=== PATIENT | male | born 1945 | race Caucasian/White ===

== ENCOUNTER 2017-10-11 10:38 | Emergency (ER) | payer MEDICARE ==
[2017-10-11] MEDS ORDERED: ISOVUE-370 76%-LOCM 1 ML ONE (10:47)
[2017-10-11 11:02] LABS: #Basophils 0.1 thou/uL (0.0-0.2); #Eosinphils 0.1 thou/uL (0.0-0.7); #Lymphocytes 1.7 thou/uL (1.20-3.40); #Monocytes 0.6 thou/uL (0.11-0.59); #Neutrophils 4.8 thou/uL (1.40-6.50); %Basophils 1.1 % (0.0-1.0); %Eosinophils 1.9 % (0.0-10.0); %Lymphocytes 23.2 % (21.0-51.0); %Monocytes 8.6 % (0.0-10.0); %Neutrophils 65.2 % (42.0-75.0); Hemoglobin 17.1 g/dL (14.0-18.0); Mean Corpuscular HGB CONC 33.6 g/dL (32.0-36.0); Mean Corpuscular Hemoglobin 31.6 pg (27.0-31.0); Mean Platelet Volume 8.9 fL (7.4-10.4); Platelet Count 128 thou/uL (130-400); RBC Distribution Width 12.1 % (11.5-14.5); Red Blood Cell (RBC) Count 5.41 mill/uL (4.70-6.10); White Blood Cell (WBC) Count 7.3 thou/uL (4.8-10.8)
--- NOTE | 2017-10-11 11:05 | CT ---
CT BRAIN WITHOUT CONTRAST: Date: 10/11/17 HISTORY: Loss of vision in the right eye, headache. FINDINGS: No evidence of acute infarct, hemorrhage, midline shift, or abnormal extra-axial fluid collections ar e seen. The ventricular size is appropriate and the basilar cisterns are patent. The bony calvarium i s intact. The visualized paranasal sinuses and mastoid air cells are well aerated. IMPRESSION: No CT evidence of acute intracranial process. Discussed over the telephone with ER physician, Dr. Castillo, at 1055 hours. CODE CR. POS: [facility]
[2017-10-11 11:06] LABS: PTT 26.7 SEC (22.9-36.1); Prothrombin Time 13.3 SEC (12.0-14.7)
[2017-10-11 11:24] LABS: CKMB 1.2 ng/mL (0-6.6); Troponin I Less than 0.010 ng/mL (< 0.028)
[2017-10-11] MEDS ORDERED: Proparacaine 0.5% Opth 15 ML BOT ONE (11:24)
--- NOTE | 2017-10-11 11:32 | CT ---
CTA HEAD WITH IV CONTRAST AND 3D POSTPROCESSING CTA NECK WITH IV CONTRAST AND 3D POSTPROCESSING: Date: 10/11/17 HISTORY: Stroke alert, loss of vision in right eye, headache, loss of visual field in both eyes. FINDINGS: Atherosclerotic vascular calcifications are present. The intra and extracranial carotid artery and ve rtebrobasilar systems demonstrate good flow without evidence of significant stenosis, major branch oc clusion, or aneurysm formation. Incidental note is made of a 1.1 cm enhancing nodule posterior to the inferior pole of the left lobe of the thyroid gland. There are degenerative changes in the spine. IMPRESSION: 1. No evidence of significant abnormality in the carotid or vertebrobasilar systems. 2. Probable left parathyroid adenoma. Correlation with serum PTH level and radionuclide parathyroid scan recommended. Discussed over the phone with ER physician, Dr. Castillo, at 1118 hours. CODE CR. POS: [facility]
[2017-10-11 11:33] LABS: Bilirubin Negative (Negative); Blood, Urine Negative (Negative); Clarity CLEAR (Clear); Glucose, Urine (Dipstick) Negative (Negative); Leukocyte Negative (Negative); Nitrite Negative (Negative); Protein, Urine (Dipstick) Negative (Neg-Trace); Specific Gravity, Urine 1.018 (1.002-1.036)
[2017-10-11 11:42] LABS: ALT (SGPT) 20 U/L (8-55); AST (SGOT) 19 U/L (5-34); Albumin 4.5 g/dL (3.4-4.8); Alkaline Phosphatase 69 U/L (40-150); Anion Gap 14 mmol/L (10-20); BUN (Urea Nitrogen) 24 mg/dL (8.4-25.7); Bilirubin, Total 0.7 mg/dL (0.2-1.2); CK (CPK) 58 U/L (30-200); Calc. Creatinine Clearance 0 mL/min (70-130); Calcium 8.9 mg/dL (7.8-10.44); Carbon Dioxide 19 mmol/L (23-31); Chloride 107 mmol/L (98-107); Estimated GFR-MDRD 53; Globulin 2.9 g/dL (2.4-3.5); Glucose 127 mg/dL (80-115); Protein, Total 7.4 g/dL (5.8-8.1); Sodium 136 mmol/L (136-145)
[2017-10-11 11:52] LABS: Bacteria/HPF None Seen HPF (None Seen); Hyaline Casts/LPF NONE SEEN LPF (0-3 Hyaline); RBC/HPF None Seen HPF (0-3); Squamous Epithelial 0-3 HPF (0-3); WBC/HPF None Seen HPF (0-3)
== END 2017-10-11 16:18 | disposition short-term general hospital (02) ==
LOC: ERS 10:38
DX: H53.131 Sudden visual loss, right eye (principal); E78.5 Hyperlipidemia, unspecified; I10 Essential (primary) hypertension; M10.9 Gout, unspecified; E11.9 Type 2 diabetes mellitus without complications; Z87.891 Personal history of nicotine dependence; Z79.899 Other long term (current) drug therapy; Z79.82 Long term (current) use of aspirin
CPT/HCPCS: 36416; 70450; 70496; 70498; 80053; 81001; 82553; 84484; 85025; 85610; 85730; 93005

== ENCOUNTER → 2018-01-22 | Day surgery (SDC) | payer MEDICARE ==
[~2018-01-22] MED LIST: Diazepam 5 MG TAB ONE; Fentanyl 100 MCG/2 ML VIAL ONE; Heparin 0 ML ONE; Lidocaine 1% (PF) 30 ML VIAL ONE; Midazolam HCl 2 mg/2 ml Vial ONE
[2018-01-22 07:58] LABS: #Eosinphils 0.3 thou/uL (0.0-0.7); #Lymphocytes 1.6 thou/uL (1.20-3.40); #Monocytes 0.6 thou/uL (0.11-0.59); #Neutrophils 4.4 thou/uL (1.40-6.50); %Basophils 0.4 % (0.0-1.0); %Eosinophils 4.3 % (0.0-10.0); %Lymphocytes 23.1 % (21.0-51.0); %Monocytes 8.5 % (0.0-10.0); %Neutrophils 63.8 % (42.0-75.0); Hemoglobin 16.2 g/dL (14.0-18.0); Mean Corpuscular HGB CONC 32.6 g/dL (32.0-36.0); Mean Corpuscular Hemoglobin 30.6 pg (27.0-31.0); Mean Corpuscular Volume 93.8 fL (78.0-98.0); Mean Platelet Volume 8.7 fL (7.4-10.4); Platelet Count 132 thou/uL (130-400); RBC Distribution Width 12.6 % (11.5-14.5); Red Blood Cell (RBC) Count 5.31 mill/uL (4.70-6.10); White Blood Cell (WBC) Count 6.9 thou/uL (4.8-10.8)
[2018-01-22 08:14] LABS: ALT (SGPT) 25 U/L (8-55); AST (SGOT) 18 U/L (5-34); Albumin 4.5 g/dL (3.4-4.8); Alkaline Phosphatase 51 U/L (40-150); Anion Gap 11 mmol/L (10-20); BUN (Urea Nitrogen) 36 mg/dL (8.4-25.7); Bilirubin, Total 1.1 mg/dL (0.2-1.2); Calc. Creatinine Clearance 0 mL/min (70-130); Calcium 9.3 mg/dL (7.8-10.44); Carbon Dioxide 24 mmol/L (23-31); Chloride 109 mmol/L (98-107); Cholesterol 106 mg/dl (< 200 Desired); Estimated GFR-MDRD 31; Globulin 3.1 g/dL (2.4-3.5); Glucose 125 mg/dL (80-115); HDL Cholesterol 35 mg/dL (>60 Neg Risk); LDL Cholesterol, Calculated 44 mg/dL; Potassium 4.2 mmol/L (3.5-5.1); Protein, Total 7.6 g/dL (5.8-8.1); Sodium 140 mmol/L (136-145); Triglycerides 135 mg/dL (Less than 150)
[2018-01-22 08:28] LABS: INR-International Normal Ratio 1.3; PTT 30.1 SEC (22.9-36.1); Prothrombin Time 15.8 SEC (12.0-14.7)
--- NOTE | 2018-01-23 09:36 | EKG ---
Test Reason : PREOP Blood Pressure : / mmHG Vent. Rate : 057 BPM Atrial Rate : 098 BPM P-R Int : 000 ms QRS Dur : 166 ms QT Int : 464 ms P-R-T Axes : 000 -35 141 degrees QTc Int : 451 ms Atrial fibrillation with slow ventricular response Left axis deviation Left bundle branch block Abnormal ECG When compared with ECG of 11-OCT-2017 11:11, Atrial fibrillation has replaced Sinus rhythm T wave inversion less evident in Lateral leads Confirmed by MARIKA CHIN ([id number]) on 01/23/2018 9:35:43 AM Referred By: AMARI Confirmed By:MARIKA CHIN
== END ==
LOC: CCL 07:06
PROVIDERS: ATTEND Internal Medicine Cardiovascular Disease
DX: I42.8 Other cardiomyopathies (principal); I48.1 Persistent atrial fibrillation; I48.2 Chronic atrial fibrillation; I11.0 Hypertensive heart disease with heart failure; I50.22 Chronic systolic (congestive) heart failure; E78.5 Hyperlipidemia, unspecified; E78.00 Pure hypercholesterolemia, unspecified; Z87.891 Personal history of nicotine dependence; Z79.01 Long term (current) use of anticoagulants; Z79.899 Other long term (current) drug therapy; Z53.8 Procedure and treatment not carried out for other reasons
CPT/HCPCS: 36415; 80053; 80061; 85025; 85610; 85730; 93005; 93010; J1644; J2001; J2250; J3010

== ENCOUNTER 2018-03-26 16:25 | Observation (INO) | payer MEDICARE ==
[2018-03-26 17:12] VITALS: BMI 27.1
[2018-03-26] MEDS ORDERED: Acetaminophen 500 MG TAB PO PRN (17:53)
[2018-03-26] MEDS ORDERED: Ibuprofen 200 MG TAB PO PRN (17:54)
[2018-03-26] MEDS ORDERED: cloNIDine 0.1 MG TAB PO PRN (17:54)
[2018-03-26] MEDS: Sodium Chloride 0.9% 1,000 ML IV SCH (17:55)
[2018-03-26] MEDS ORDERED: traZODone HCl 50 MG TAB PO SCH (21:00)
[2018-03-26] MEDS: ALPRAZolam 1 MG TAB PO SCH (21:51)
[2018-03-26] MEDS: Carvedilol 25 MG TAB PO SCH (21:51)
[2018-03-27] MEDS: Sodium Chloride 0.9% 1,000 ML IV SCH (04:16)
[2018-03-27] MEDS: Atorvastatin Calcium 40 MG TAB PO SCH ×2 (06:14→06:15)
[2018-03-27] MEDS: Carvedilol 25 MG TAB PO SCH (06:14)
[2018-03-27 06:23] LABS: #Eosinphils 0.2 thou/uL (0.0-0.7); #Lymphocytes 1.5 thou/uL (1.20-3.40); #Monocytes 0.7 thou/uL (0.11-0.59); #Neutrophils 4.9 thou/uL (1.40-6.50); %Basophils 0.3 % (0.0-1.0); %Eosinophils 2.9 % (0.0-10.0); %Lymphocytes 20.5 % (21.0-51.0); %Neutrophils 66.3 % (42.0-75.0); Hemoglobin 15.1 g/dL (14.0-18.0); Mean Corpuscular HGB CONC 33.1 g/dL (32.0-36.0); Mean Corpuscular Hemoglobin 31.4 pg (27.0-31.0); Mean Corpuscular Volume 94.7 fL (78.0-98.0); Platelet Count 121 thou/uL (130-400); RBC Distribution Width 12.6 % (11.5-14.5); White Blood Cell (WBC) Count 7.3 thou/uL (4.8-10.8)
[2018-03-27] MEDS ORDERED: Lidocaine 1% (PF) 30 ML VIAL ONE ×2 (06:29→06:30)
[2018-03-27 06:46] LABS: Anion Gap 11 mmol/L (10-20); BUN (Urea Nitrogen) 14 mg/dL (8.4-25.7); Calc. Creatinine Clearance 62 mL/min (70-130); Calcium 8.5 mg/dL (7.8-10.44); Carbon Dioxide 29 mmol/L (23-31); Chloride 107 mmol/L (98-107); Estimated GFR-MDRD 55; Glucose 87 mg/dL (80-115); Potassium 3.6 mmol/L (3.5-5.1); Sodium 143 mmol/L (136-145)
[2018-03-27] MEDS ORDERED: Fentanyl 100 MCG/2 ML VIAL ONE (07:01)
[2018-03-27] MEDS ORDERED: Midazolam HCl 2 mg/2 ml Vial ONE (07:01)
[2018-03-27] MEDS ORDERED: traMADol HCl 50 MG TAB PO PRN (07:30)
[2018-03-27] MEDS ORDERED: Acetaminophen/Codeine 30-300mg Tablet PO PRN ×2 (07:30)
[2018-03-27] MEDS ORDERED: Nitroglycerin 0.4 MG TAB (25 Tab Bottle) SL PRN (07:30)
[2018-03-27] MEDS ORDERED: Sodium Chloride 0.9% 1,000 ML IV SCH (07:30)
[2018-03-27] MEDS: ALPRAZolam 1 MG TAB PO SCH (08:53)
[2018-03-27] MEDS ORDERED: Amlodipine 5 MG TAB PO SCH (09:00)
[2018-03-27] MEDS ORDERED: Iopamidol 370 76% 100 ML VIAL ONE (09:00)
[2018-03-27] MEDS ORDERED: traZODone HCl 50 MG TAB PO SCH (09:00)
[2018-03-27 15:54] VITALS: BP 137/71; TEMP 99.1
== END 2018-03-27 17:50 | disposition home or self-care (01) ==
LOC: 2SW 16:25
PROVIDERS: ADMIT Internal Medicine Cardiovascular Disease; ATTEND Internal Medicine Cardiovascular Disease
PROC: 4A023N7 Measurement of Cardiac Sampling and Pressure, Left Heart, Percutaneous Approach (ICD-10-PCS; principal; 2018-03-26)
PROC: B2111ZZ Fluoroscopy of Multiple Coronary Arteries using Low Osmolar Contrast (ICD-10-PCS; 2018-03-26)
DX: I25.10 Atherosclerotic heart disease of native coronary artery without angina pectoris (principal); E78.00 Pure hypercholesterolemia, unspecified; E11.9 Type 2 diabetes mellitus without complications; I11.0 Hypertensive heart disease with heart failure; I50.9 Heart failure, unspecified; Z87.891 Personal history of nicotine dependence; Z79.01 Long term (current) use of anticoagulants; Z79.899 Other long term (current) drug therapy
CPT/HCPCS: 76942; 80048; 85025; 93454; 96360; 96361 ×2; C1769; G0378; G0379; 36415; 99152; J1644; J2001; J2250; J3010

== ENCOUNTER 2018-04-23 05:40 | Inpatient (IN) | payer MEDICARE ==
[2018-04-23] MEDS ORDERED: Fentanyl 250 MCG/5 ML VIAL ONE (05:51)
[2018-04-23] MEDS ORDERED: Norepinephrine 8 MG/0.9% NS 250 ML ONE (06:11)
[2018-04-23] MEDS ORDERED: KETAMINE 100 MG/ML (5ML VIAL) ONE (06:32)
[2018-04-23] MEDS ORDERED: Albumin 5% 500 ML ONE (06:34)
[2018-04-23] MEDS ORDERED: CEFAZOLIN 2 GM/50 ML BAG ONE (06:45)
[2018-04-23 06:56] LABS: #Basophils 0.1 thou/uL (0.0-0.2); #Eosinphils 0.2 thou/uL (0.0-0.7); #Lymphocytes 1.5 thou/uL (1.20-3.40); #Monocytes 0.6 thou/uL (0.11-0.59); #Neutrophils 3.7 thou/uL (1.40-6.50); %Lymphocytes 24.6 % (21.0-51.0); %Monocytes 9.9 % (0.0-10.0); %Neutrophils 60.5 % (42.0-75.0); Hemoglobin 15.5 g/dL (14.0-18.0); Mean Corpuscular HGB CONC 32.9 g/dL (32.0-36.0); Mean Corpuscular Hemoglobin 31.1 pg (27.0-31.0); Mean Corpuscular Volume 94.6 fL (78.0-98.0); Mean Platelet Volume 8.8 fL (7.4-10.4); Platelet Count 124 thou/uL (130-400); RBC Distribution Width 12.4 % (11.5-14.5); White Blood Cell (WBC) Count 6.1 thou/uL (4.8-10.8)
[2018-04-23 06:58] LABS: INR-International Normal Ratio 1.1; PTT 28.5 SEC (22.9-36.1); Prothrombin Time 14.3 SEC (12.0-14.7)
[2018-04-23 07:14] LABS: Anion Gap 11 mmol/L (10-20); BUN (Urea Nitrogen) 19 mg/dL (8.4-25.7); Calc. Creatinine Clearance 60 mL/min (70-130); Carbon Dioxide 29 mmol/L (23-31); Chloride 106 mmol/L (98-107); Estimated GFR-MDRD 50; Glucose 110 mg/dL (80-115); Potassium 3.8 mmol/L (3.5-5.1); Sodium 142 mmol/L (136-145)
[2018-04-23] MEDS ORDERED: Heparin 10,000 UNITS/1 ML VIAL 30,000 UNITS in Sodium Chloride 0.9% 1,000 ML FS SCH (07:15)
--- NOTE | 2018-04-23 07:54 | RAD ---
TWO VIEWS OF CHEST: DATE: 04/23/2018. COMPARISON: None. HISTORY: Preoperative patient. FINDINGS: No pneumothorax, pleural fluid, focal consolidation, or alveolar edema. Heart and mediastinal contou rs unremarkable. IMPRESSION: No acute findings. POS: [facility]
[2018-04-23] MEDS ORDERED: Bupivacaine HCl 0.5%/Epinephrine 1:200,000/PF 30 ml Vial ONE (08:11)
[2018-04-23] MEDS ORDERED: Dexamethasone 4 mg/ml Vial ONE (08:11)
[2018-04-23] MEDS ORDERED: SUGAMMADEX SODIUM 200 MG/2 ML VIAL ONE ×2 (09:13→09:52)
[2018-04-23] MEDS ORDERED: Norepinephrine 8 MG/0.9% NS 250 ML IVPB PRN (10:29)
[2018-04-23] MEDS ORDERED: Mag-Al 1200 mg/1200 mg/30 ML UDCUP PO PRN (10:29)
[2018-04-23] MEDS ORDERED: Bisacodyl 5 MG TAB PO PRN (10:29)
[2018-04-23] MEDS ORDERED: hydrALAZINE 20 MG/ML VIAL SLOW IVP PRN (10:29)
[2018-04-23] MEDS ORDERED: Bisacodyl 10 MG SUPP PR PRN (10:29)
[2018-04-23] MEDS ORDERED: Morphine 2 MG/ML SYRINGE SLOW IVP PRN (10:29)
[2018-04-23] MEDS ORDERED: Potassium Chloride 20 MEQ/100 ML PREMIX BAG IVPB PRN (10:29)
[2018-04-23] MEDS ORDERED: Guaifenesin DM 100-10/5 ML UDCUP PO PRN (10:29)
[2018-04-23] MEDS ORDERED: Nitroglycerin 50 MG/250 ML BOT 250 ML IVPB PRN (10:29)
[2018-04-23] MEDS ORDERED: Fentanyl 100 MCG/2 ML VIAL SLOW IVP PRN ×2 (10:29)
[2018-04-23] MEDS ORDERED: Ondansetron PF 4 MG/2 ML Vial IVP PRN (10:29)
[2018-04-23] MEDS ORDERED: Magnesium 2 GM/50 ML 2 GM in Premix Bag 1 BAG IVPB SCH (10:29)
[2018-04-23] MEDS ORDERED: Post-Op Insulin Drip Protocol IVPB ONE (10:29)
[2018-04-23] MEDS ORDERED: D5 1/2 NS w/20 mEq KCL 1,000 ML IV SCH (10:29)
[2018-04-23] MEDS ORDERED: Hetastarch 6% 500 ML 500 ML IVPB PRN (10:29)
[2018-04-23] MEDS ORDERED: Promethazine HCl 25 MG/ML VIAL IM PRN (10:29)
[2018-04-23] MEDS ORDERED: HYDROcodone/Acetaminophen 5/325 mg Tablet PO PRN ×2 (10:29)
[2018-04-23] MEDS ORDERED: HUMULIN R 100 UNITS in Sodium Chloride 0.9% 100 ML IVPB SCH (10:41)
[2018-04-23] MEDS ORDERED: Dextrose 50% Abboject 50 ML SYRINGE SLOW IVP PRN (10:41)
[2018-04-23] MEDS ORDERED: Insulin Regular 300 UNITS/3 ML VIAL SC PRN (10:41)
[2018-04-23] MEDS ORDERED: Dextrose 5% in Water 1,000 ML IV PRN (10:41)
[2018-04-23 10:50] LABS: Actual Bicarbonate (HCO3a) 22.4 mEq/L (22-28); Base Excess (BEa) -4.4 mEq/L (-2.0 to +3.0); CO2 Tension 48.3 mmHg (35.0-45.0); Carboxyhemoglobin (COHb) 1.4 gm% (0.0-3.0); Hemoglobin (Hb) 13.1 g/dL (14.0-18.0); O2 Tension (PaO2) 69.5 mmHg (> 70.0); Potassium - ABG Lab 4.01 mmol/L (3.70-5.30); pH, Arterial 7.29 (7.35-7.45)
[2018-04-23 10:52] LABS: ALV-art Gradient 226.625 (0-20); Puncture Site ALINE
[2018-04-23 11:22] LABS: #Eosinphils 0.3 thou/uL (0.0-0.7); #Lymphocytes 1.5 thou/uL (1.20-3.40); #Monocytes 0.6 thou/uL (0.11-0.59); #Neutrophils 6.9 thou/uL (1.40-6.50); %Basophils 0.3 % (0.0-1.0); %Eosinophils 3.1 % (0.0-10.0); %Lymphocytes 16.3 % (21.0-51.0); %Monocytes 5.9 % (0.0-10.0); %Neutrophils 74.5 % (42.0-75.0); Hemoglobin 13.4 g/dL (14.0-18.0); Mean Corpuscular HGB CONC 33.3 g/dL (32.0-36.0); Mean Corpuscular Hemoglobin 31.8 pg (27.0-31.0); Mean Corpuscular Volume 95.4 fL (78.0-98.0); Mean Platelet Volume 9.3 fL (7.4-10.4); Platelet Count 99 thou/uL (130-400); RBC Distribution Width 12.4 % (11.5-14.5); Red Blood Cell (RBC) Count 4.21 mill/uL (4.70-6.10); White Blood Cell (WBC) Count 9.2 thou/uL (4.8-10.8)
[2018-04-23 11:25] LABS: INR-International Normal Ratio 1.4
[2018-04-23 11:33] LABS: Anion Gap 8 mmol/L (10-20); Calc. Creatinine Clearance 0 mL/min (70-130); Calcium 8.2 mg/dL (7.8-10.44); Carbon Dioxide 25 mmol/L (23-31); Chloride 111 mmol/L (98-107); Estimated GFR-MDRD 59; Glucose 165 mg/dL (80-115); Sodium 140 mmol/L (136-145)
[2018-04-23 11:49] LABS: BUN (Urea Nitrogen) 17 mg/dL (8.4-25.7)
--- NOTE | 2018-04-23 12:03 | RAD ---
PORTABLE AP CHEST RADIOGRAPH: Date: 04-23-18 History: Post-operative open heart surgery Comparison: 04-23-18 FINDINGS: There are interval post-surgical changes related to median sternotomy. Endotracheal tube is noted in place with tip overlying the T3-4 level and above the level of the pattie. Right subclavian central v enous catheter is noted in place with tip overlying the expected location of the right atrium. Medias tinal drains and left sided thoracotomy tube are noted in place. This exam is obtained in a shallow d epth of inspiration and there are increased densities seen within the left hilar region at the left l krystina base, probably attributable to atelectasis. There is a metallic density overlying the left hilar region of uncertain etiology. This is difficult to further localize on this exam. No other interval c hange. IMPRESSION: 1. Interval post-operative changes when compared to the prior study with lines and tubes in place as described above. No pneumothorax is seen. 2. Irregular metallic density overlying the left hilar region of uncertain etiology. The exact locati on is difficult to discern on this exam. Clinical correlation is suggested. 3. Atelectasis in the left midlung zone and at the left lung base. POS: [facility]
--- NOTE | 2018-04-23 12:04 | OP ---
DATE OF PROCEDURE: 04/23/2018 PREOPERATIVE DIAGNOSIS: Coronary artery disease/diabetes mellitus/chronic atrial fibrillation. POSTOPERATIVE DIAGNOSIS: Coronary artery disease/diabetes mellitus/chronic atrial fibrillation. PROCEDURES PERFORMED: 1. Off-pump coronary artery bypass grafting x1 - left internal mammary artery 2.0 mm mid left anterior descending artery - good conduit target. 2. Ligation of left atrial appendage with AtriClip. CO-SURGEON: Ricky Ott MD. ANESTHESIA: General endotracheal - Dr. Joss Humphreys. DRAINS: 24-[place] chest tube x2. DRIPS: None. TRANSFUSIONS: None. DESCRIPTION OF PROCEDURE: After consent was obtained, the patient was brought to the operating room and placed in supine position on the operating room table. Appropriate central line was placed, and general endotracheal anesthesia was induced. Chest, abdomen, and thighs were prepped and draped in usual sterile fashion. Median sternotomy was performed. The left internal mammary artery was harvested as a pedicle graft. The patient was systemically heparinized. Distal pedicle was divided and infused with papaverine. Thymic fat and pericardium were divided with cautery. Pericardial stay sutures were placed. The left atrial appendage was measured and an appropriately sized AtriClip was then placed. Heart was positioned for LAD bypass. The LAD was stabilized with Octopus retractor. Proximal control was obtained with vessel loop. Mammary artery was brought through and then the pericardium was anastomosed to the LAD in an end-to-side fashion with running 7-0 Prolene suture. On release, mammary claims good occluding anastomosis and good distal flow. Pedicle was secured with interrupted 6-0 Prolene suture. There was a palpable pulse within the mammary artery. The protamine was administered. A 24-[place] chest tubes x2 were placed in the mediastinum. Sternum was treated with vancomycin paste. After adequate hemostasis had been obtained, the sternum was closed with #7 wire. The pericostal tissue was then treated with 0.5% Marcaine mixed with 5 mg Decadron. Wounds were irrigated, treated with platelet poor plasma and closed in multiple layers. Needle, sponge, and instrument counts were all reported as correct at the end of the procedure. The patient was transferred to the intensive care unit in stable critical condition. Job ID: [id number]
[2018-04-23] MEDS: Ketorolac Tromethamine 30 MG/ML VIAL IVP SCH ×2 (12:22→18:15)
[2018-04-23] MEDS: CEFAZOLIN 2 GM/50 ML BAG IVPB SCH ×2 (13:39→22:05)
[2018-04-23 13:41] LABS: Actual Bicarbonate (HCO3a) 22.7 mEq/L (22-28); Analyzer IN Cardio OR; Base Excess (BEa) -1.2 mEq/L (-2.0 to +3.0); CO2 Tension 35.6 mmHg (35.0-45.0); Calcium, Ionized 1.01 mmol/L (1.12-1.30); Carboxyhemoglobin (COHb) 0.8 gm% (0.0-3.0); Hemoglobin (Hb) 13.2 g/dL (14.0-18.0); Potassium - ABG Lab 3.59 mmol/L (3.70-5.30); pH, Arterial 7.42 (7.35-7.45)
[2018-04-23 13:41] LABS: Actual Bicarbonate (HCO3a) 22.2 mEq/L (22-28); Analyzer IN Cardio OR; Base Excess (BEa) -1.1 mEq/L (-2.0 to +3.0); Calcium, Ionized 1.06 mmol/L (1.12-1.30); Carboxyhemoglobin (COHb) 0.9 gm% (0.0-3.0); Hemoglobin (Hb) 13.9 g/dL (14.0-18.0); O2 Tension (PaO2) 259.7 mmHg (> 70.0); Potassium - ABG Lab 3.48 mmol/L (3.70-5.30); pH, Arterial 7.45 (7.35-7.45)
[2018-04-23 14:36] LABS: Actual Bicarbonate (HCO3a) 23.7 mEq/L (22-28); Base Excess (BEa) -2.5 mEq/L (-2.0 to +3.0); CO2 Tension 46.4 mmHg (35.0-45.0); Calcium, Ionized 1.15 mmol/L (1.12-1.30); Carboxyhemoglobin (COHb) 1.1 gm% (0.0-3.0); Hemoglobin (Hb) 13.4 g/dL (14.0-18.0); O2 Tension (PaO2) 106.5 mmHg (> 70.0); Potassium - ABG Lab 4.04 mmol/L (3.70-5.30); pH, Arterial 7.33 (7.35-7.45)
[2018-04-23 14:37] LABS: Puncture Site ALINE
[2018-04-23 14:43] LABS: Puncture Site ALINE
[2018-04-23 14:44] LABS: Puncture Site ALINE
[2018-04-23 16:03] LABS: Hemoglobin 13.4 g/dL (14.0-18.0)
[2018-04-23] MEDS ORDERED: Ondansetron PF 4 MG/2 ML Vial ONE (16:48)
[2018-04-23] MEDS ORDERED: Nitroglycerin 50 MG/250 ML BOT ONE (16:48)
[2018-04-23] MEDS ORDERED: Heparin 30,000 units/30 ml VIAL ONE (16:48)
[2018-04-23] MEDS ORDERED: Heparin 5,000 UNITS/ML VIAL ONE (16:48)
[2018-04-23] MEDS ORDERED: PROPOFOL 200 MG/20 ML VIAL ONE (16:48)
[2018-04-23] MEDS ORDERED: Calcium Chloride 1 GM/10 ML Abboject SYRINGE ONE (16:48)
[2018-04-23] MEDS ORDERED: Protamine Sulfate 250 MG/25 ML VIAL ONE (16:48)
[2018-04-23] MEDS ORDERED: Thrombin 5000 UNITS/5 ML VIAL ONE (16:48)
[2018-04-23] MEDS ORDERED: Aminocaproic Acid 5 GM/20 ML VIAL ONE (16:48)
[2018-04-23] MEDS ORDERED: Papaverine 60 MG/2 ML VIAL ONE (16:48)
[2018-04-23] MEDS ORDERED: Rocuronium Bromide 10 MG/ML (10ML VIAL) ONE (16:48)
[2018-04-23] MEDS ORDERED: Succinylcholine Chloride 20 MG/ML 10 ml SYRINGE FS ONE (16:48)
[2018-04-23 19:01] LABS: Potassium 4.3 mmol/L (3.5-5.1)
[2018-04-23] MEDS ORDERED: Famotidine/PF 20 mg/2ml Vial SLOW IVP SCH (21:00)
[2018-04-23] MEDS ORDERED: ALPRAZolam 1 MG TAB PO SCH (21:00)
[2018-04-24] MEDS: Ketorolac Tromethamine 30 MG/ML VIAL IVP SCH ×4 (00:34→18:35)
[2018-04-24 04:51] LABS: #Lymphocytes 0.7 thou/uL (1.20-3.40); #Monocytes 1.2 thou/uL (0.11-0.59); #Neutrophils 9.7 thou/uL (1.40-6.50); %Basophils 0.1 % (0.0-1.0); %Eosinophils 0.2 % (0.0-10.0); %Monocytes 10.4 % (0.0-10.0); %Neutrophils 83.3 % (42.0-75.0); Hemoglobin 13.6 g/dL (14.0-18.0); Mean Corpuscular HGB CONC 33.1 g/dL (32.0-36.0); Mean Corpuscular Hemoglobin 31.5 pg (27.0-31.0); Mean Corpuscular Volume 95.2 fL (78.0-98.0); Mean Platelet Volume 9.6 fL (7.4-10.4); Platelet Count 91 thou/uL (130-400); RBC Distribution Width 12.4 % (11.5-14.5); White Blood Cell (WBC) Count 11.6 thou/uL (4.8-10.8)
[2018-04-24 05:06] LABS: Anion Gap 10 mmol/L (10-20); BUN (Urea Nitrogen) 16 mg/dL (8.4-25.7); Calc. Creatinine Clearance 0 mL/min (70-130); Calcium 8.7 mg/dL (7.8-10.44); Carbon Dioxide 25 mmol/L (23-31); Chloride 107 mmol/L (98-107); Estimated GFR-MDRD 63; Glucose 127 mg/dL (83-110); Potassium 4.2 mmol/L (3.5-5.1); Sodium 138 mmol/L (136-145)
[2018-04-24] MEDS: CEFAZOLIN 2 GM/50 ML BAG IVPB SCH (07:22)
[2018-04-24] MEDS ORDERED: Nitroglycerin 0.4 MG TAB (25 Tab Bottle) SL PRN (07:42)
[2018-04-24] MEDS ORDERED: Artificial Tears 18 DROP/0.9 ML EA EYE PRN (07:42)
[2018-04-24] MEDS ORDERED: Guaifenesin DM 100-10/5 ML UDCUP PO PRN (07:42)
[2018-04-24] MEDS ORDERED: Bisacodyl 10 MG SUPP PR PRN (07:42)
[2018-04-24] MEDS ORDERED: Mag-Al 1200 mg/1200 mg/30 ML UDCUP PO PRN (07:42)
[2018-04-24] MEDS ORDERED: Mineral Oil ENEMA PR PRN (07:42)
[2018-04-24] MEDS ORDERED: diphenhydrAMINE 25 MG CAP PO PRN (07:42)
[2018-04-24] MEDS ORDERED: Zolpidem Tartrate 5 MG TAB PO PRN (07:42)
[2018-04-24] MEDS ORDERED: Bisacodyl 5 MG TAB PO PRN (07:42)
--- NOTE | 2018-04-24 08:45 | RAD ---
MADDIE ONE VIEW: History: Dyspnea. Follow up. Comparison: 04-23-18 FINDINGS: Cardiac silhouette is magnified and enlarged. Pulmonary vasculature is upper limits of normal. Mild b ibasilar atelectasis is again demonstrated. The atelectasis at the left base has increased slightly, now with more obscuration of the left hemidiaphragm. The upper mediastinum is much less prominent than on the prior study. Endotracheal catheter is no longer visible. Other lines and tubes appear unchanged in position. Metallic atrial appendage clip device is again demonstrated. IMPRESSION: 1. Interval improvement in radiographic appearance of the upper mediastinum, likely related to cleari ng of fluid. 2. Increasing left basilar atelectasis. POS: [facility]
[2018-04-24] MEDS ORDERED: Aspirin 325 MG TAB PO SCH (09:00)
[2018-04-24] MEDS: Famotidine 20 MG TAB PO SCH ×2 (09:27→22:02)
[2018-04-24] MEDS: Magnesium 2 GM/50 ML 2 GM in Premix Bag 1 BAG IVPB SCH (09:27)
[2018-04-24] MEDS: Aspirin 325 mg Enteric Coated Tablet PO SCH (09:27)
[2018-04-24] MEDS: Atorvastatin Calcium 40 MG TAB PO SCH (09:27)
[2018-04-24] MEDS ORDERED: Insulin Glargine 6 UNITS in Pre-Filled Syringe 1 EACH SC SCH (09:30)
--- NOTE | 2018-04-24 18:10 | PDOC.CTH ---
Cardiology Progress Note - Subjective Pt extubated. Doing well. No complaints. - Objective Vital Signs Temp Pulse Pulse BP BP Pulse Ox Pulse Ox 04/24/18 16:00 98.5 F 04/24/18 15:46 99 04/24/18 13:31 82 94 142/86 H 130/76 04/24/18 12:00 99.4 F 04/24/18 10:12 92 85 128/90 122/79 92 L 04/24/18 08:00 99.6 F 100 Pulse Ox 04/24/18 16:00 04/24/18 15:46 04/24/18 13:31 04/24/18 12:00 04/24/18 10:12 90 L 04/24/18 08:00 Weight 3.192 oz 04/23/18 04/24/18 04/25/18 06:59 06:59 06:59 Intake Total 3705.6 631.8 Output Total 2772 575 Balance 933.6 56.8 - Physical Examination General/Neuro: alert & oriented x3, NAD Neck: carotid US brisk, no JVD present Lungs: CTA, unlabored respirations Heart: other: (irr) Abdomen: no HSM, NT/ND, soft Extremities: + femoral B - Labs Result Diagrams: 04/24/18 04:42 04/24/18 04:42 - Assessment/Plan CAD s/p CABG afib Cardiomyopathy on statin therapy. MIKE ligated. Recommend TREY in 45-60 days to reassess add coreg, ARB CT in place
[2018-04-24] MEDS: ALPRAZolam 1 MG TAB PO SCH (22:00)
[2018-04-24] MEDS: Carvedilol 3.125 MG TAB PO SCH (22:03)
[2018-04-25] MEDS: Ketorolac Tromethamine 30 MG/ML VIAL IVP SCH ×4 (00:30→17:05)
[2018-04-25 07:58] VITALS: BMI 27.3
[2018-04-25] MEDS: Famotidine 20 MG TAB PO SCH ×2 (08:51→21:56)
[2018-04-25] MEDS: Magnesium 2 GM/50 ML 2 GM in Premix Bag 1 BAG IVPB SCH (08:52)
[2018-04-25] MEDS: Carvedilol 3.125 MG TAB PO SCH ×2 (08:52→21:57)
[2018-04-25] MEDS: Atorvastatin Calcium 40 MG TAB PO SCH (08:52)
[2018-04-25] MEDS: Aspirin 325 mg Enteric Coated Tablet PO SCH (08:52)
--- NOTE | 2018-04-25 14:24 | PRG ---
DATE OF SERVICE: 04/25/2018 SUBJECTIVE: Mr. Zamora is doing well. He is extubated. No chest tube is noted. He has been sitting up in a chair. He is awaiting transfer to telemetry monitoring. OBJECTIVE: VITAL SIGNS: Blood pressure 118/79, pulse 82, and temperature 98.9. LUNGS: Clear to auscultation. HEART: Irregularly irregular. ABDOMEN: Soft, nontender, nondistended. EXTREMITIES: No edema. PERTINENT LABORATORY DATA: Hemoglobin 13.6. Creatinine 1.1. Calcium 8.7. IMPRESSION: 1. Coronary artery disease. 2. Status post bypass surgery. 3. Cardiomyopathy. RECOMMENDATIONS: Would recommend continuing LifeVest. He did have a left atrial appendage ligation. We will hold off on anticoagulation therapy. I have restarted carvedilol at 3.125 one p.o. b.i.d. and we will titrate as needed. We will continue aspirin and add low-dose MELLISA inhibitor therapy. Job ID: [id number]
[2018-04-25] MEDS: Acetaminophen 325 MG TAB PO PRN (15:26)
[2018-04-25] MEDS: Milk Of Magnesia 30 ML UDCUP PO PRN (18:38)
[2018-04-25] MEDS: ALPRAZolam 1 MG TAB PO SCH (21:57)
[2018-04-26] MEDS: Acetaminophen 325 MG TAB PO PRN ×3 (05:17→20:58)
[2018-04-26] MEDS: Carvedilol 3.125 MG TAB PO SCH ×2 (08:56→20:57)
[2018-04-26] MEDS: Famotidine 20 MG TAB PO SCH ×2 (08:56→20:56)
[2018-04-26] MEDS: Atorvastatin Calcium 40 MG TAB PO SCH (08:57)
[2018-04-26] MEDS: Lisinopril 5 MG TAB PO SCH (08:57)
[2018-04-26] MEDS: Aspirin 325 mg Enteric Coated Tablet PO SCH (08:57)
[2018-04-26] MEDS: Milk Of Magnesia 30 ML UDCUP PO PRN (14:30)
--- NOTE | 2018-04-26 16:20 | PDOC.CTH ---
Cardiology Progress Note - Subjective Patient with c/o fever 99.9 in the last hour. Denies CP, SOB, LUND. Walked entire wells around atrium today without difficulties. - Objective Vital Signs Temp Pulse Pulse Pulse Resp BP BP 04/26/18 15:19 99.2 F 92 18 04/26/18 13:13 105 H 84 167/81 H 138/88 04/26/18 11:25 98.6 F 91 18 04/26/18 09:02 99 92 144/99 H 139/89 04/26/18 08:56 04/26/18 07:18 99.0 F 94 16 04/26/18 06:52 BP Pulse Ox Pulse Ox Pulse Ox 04/26/18 15:19 146/88 H 98 04/26/18 13:13 94 L 94 L 04/26/18 11:25 136/79 96 04/26/18 09:02 94 L 91 L 04/26/18 08:56 94 L 04/26/18 07:18 138/87 94 L 04/26/18 06:52 97 Weight 178 lb 4.8 oz 04/25/18 04/26/18 04/27/18 06:59 06:59 06:59 Intake Total 2221.8 810 Output Total 2125 2275 Balance 96.8 -1465 - Physical Examination General/Neuro: alert & oriented x3 Neck: no JVD present Lungs: CTA Heart: RRR Abdomen: NT/ND Extremities: other: - Telemetry Telemetry Rhythm: AF - Labs Result Diagrams: 04/24/18 04:42 04/24/18 04:42 - Assessment/Plan 1. CAD s/p CABG 2. Chronic AF 3. INTERNAL SPECIALIST 4. Hx CVA No changes to care. Doing well. Probable discharge tomorrow.
[2018-04-26] MEDS: ALPRAZolam 1 MG TAB PO SCH (20:56)
[2018-04-27] MEDS: Atorvastatin Calcium 40 MG TAB PO SCH (08:33)
[2018-04-27] MEDS: Aspirin 325 mg Enteric Coated Tablet PO SCH (08:33)
[2018-04-27] MEDS: Acetaminophen 325 MG TAB PO PRN (08:33)
[2018-04-27] MEDS: Famotidine 20 MG TAB PO SCH (08:34)
[2018-04-27] MEDS: Lisinopril 5 MG TAB PO SCH (08:34)
[2018-04-27] MEDS: Carvedilol 3.125 MG TAB PO SCH (08:34)
[2018-04-27 11:45] VITALS: BP 136/90; TEMP 98.1
--- NOTE | 2018-04-27 12:48 | DIS ---
DATE OF ADMISSION: 04/23/2018 DATE OF DISCHARGE: 04/27/2018 DIAGNOSIS: Coronary artery disease. PROCEDURE: Off-pump coronary artery bypass grafting x1 with ligation of left atrial appendage. DESCRIPTION OF HOSPITAL STAY: Mr. Zamora was admitted electively for single-vessel bypass. He underwent off-pump bypass. We ligated his left atrial appendage with AtriClip due to chronic atrial fibrillation. He has remained in sinus rhythm in the hospital. At the time of discharge, he is ambulatory, tolerating a regular diet, having good bowel and bladder function. Incisions are clean and dry without evidence of infection. DISCHARGE MEDICATIONS: Include; 1. Aspirin 325 mg daily. 2. Xanax 1 mg at bedtime p.r.n. 3. Trazodone 100 mg daily. 4. Norvasc 5 mg daily. 5. Lipitor 40 mg daily. 6. Coreg 6.25 mg b.i.d. 7. Zestril 5 mg daily. FOLLOWUP: With me in two weeks and Dr. Garay in a month. Job ID: [id number]
--- NOTE | 2018-04-27 20:15 | EKG ---
Test Reason : PREOP Blood Pressure : / mmHG Vent. Rate : 059 BPM Atrial Rate : 340 BPM P-R Int : 000 ms QRS Dur : 160 ms QT Int : 486 ms P-R-T Axes : 000 -21 151 degrees QTc Int : 481 ms Atrial fibrillation with slow ventricular response Left bundle branch block Abnormal ECG When compared with ECG of 22-JAN-2018 08:12, T wave inversion more evident in Lateral leads Confirmed by Russell GOODMAN ([id number]) on 04/27/2018 8:14:57 PM Referred By: Shashi BROWN Confirmed By:Russell GOODMAN
--- NOTE | 2018-04-27 20:16 | EKG ---
Test Reason : CABG Blood Pressure : / mmHG Vent. Rate : 061 BPM Atrial Rate : 101 BPM P-R Int : 000 ms QRS Dur : 168 ms QT Int : 550 ms P-R-T Axes : 000 -37 148 degrees QTc Int : 553 ms Atrial fibrillation Left axis deviation Left bundle branch block Abnormal ECG When compared with ECG of 23-APR-2018 06:46, (Unconfirmed) Nonspecific T wave abnormality now evident in Anterior leads QT has lengthened Confirmed by Russell GOODMAN ([id number]) on 04/27/2018 8:16:25 PM Referred By: STEPHANIE Confirmed By:Russell GOODMAN
== END 2018-04-27 11:57 | disposition home or self-care (01) | DRG 236 ==
LOC: SURG A 05:40 → CCU 09:24 → 2NO 04-25 10:08
PROVIDERS: ADMIT Thoracic Surgery (Cardiothoracic Vascular Surgery); ATTEND Thoracic Surgery (Cardiothoracic Vascular Surgery)
PROC: 02100Z9 Bypass Coronary Artery, One Artery from Left Internal Mammary, Open Approach (ICD-10-PCS; principal; 2018-04-23)
PROC: 02L70CK Occlusion of Left Atrial Appendage with Extraluminal Device, Open Approach (ICD-10-PCS; 2018-04-23)
DX: I25.10 Atherosclerotic heart disease of native coronary artery without angina pectoris (principal); I50.32 Chronic diastolic (congestive) heart failure; I48.2 Chronic atrial fibrillation; I11.0 Hypertensive heart disease with heart failure; I42.9 Cardiomyopathy, unspecified; E11.9 Type 2 diabetes mellitus without complications; I69.398 Other sequelae of cerebral infarction; H53.469 Homonymous bilateral field defects, unspecified side; Z87.891 Personal history of nicotine dependence; Z79.01 Long term (current) use of anticoagulants; Z79.899 Other long term (current) drug therapy
CPT/HCPCS: 36415; 36416; 71045; 71046; 80048; 82805; 85025; 85610; 85730; 86850; 86900; 86901; 93005; 93010; 93798; 94002; 94150; C1713; J0670; J1100; J1642; J1644; J1815; J1885; J2405; J2440; J2704; J2720; J3010; J3370; J3480; J7050; P9045; S0017; S0028

== ENCOUNTER 2018-04-30 16:58 | Emergency (ER) | payer MEDICARE ==
[2018-04-30] MEDS ORDERED: Metoprolol Tartrate 5 MG/5 ML VIAL ONE ×3 (19:09→21:52)
--- NOTE | 2018-04-30 19:14 | RAD ---
CHEST TWO VIEWS: 04/30/2018 HISTORY: Status post CABG. History of hypertension. COMPARISON: 04/23/2018 TECHNIQUE: PA and lateral views of the chest are obtained. FINDINGS: Two views of the chest demonstrate sternotomy wires. There is an atrial appendage clip in place. Cardiomegaly is seen. A left-sided pleural effusion is seen. IMPRESSION: Cardiomegaly and left-sided pleural effusion. POS: [facility]
[2018-04-30 19:24] LABS: #Basophils 0.1 thou/uL (0.0-0.2); #Eosinphils 0.3 thou/uL (0.0-0.7); #Lymphocytes 1.7 thou/uL (1.20-3.40); #Monocytes 0.9 thou/uL (0.11-0.59); #Neutrophils 7.7 thou/uL (1.40-6.50); %Basophils 0.6 % (0.0-1.0); %Eosinophils 2.5 % (0.0-10.0); %Lymphocytes 15.8 % (21.0-51.0); %Monocytes 8.6 % (0.0-10.0); %Neutrophils 72.5 % (42.0-75.0); Hemoglobin 16.4 g/dL (14.0-18.0); Mean Corpuscular HGB CONC 29.6 g/dL (32.0-36.0); Mean Corpuscular Volume 98.1 fL (78.0-98.0); Mean Platelet Volume 9.5 fL (7.4-10.4); Platelet Count 189 thou/uL (130-400); RBC Distribution Width 12.3 % (11.5-14.5); Red Blood Cell (RBC) Count 5.66 mill/uL (4.70-6.10); White Blood Cell (WBC) Count 10.6 thou/uL (4.8-10.8)
[2018-04-30 19:42] LABS: ALT (SGPT) 45 U/L (8-55); AST (SGOT) 38 U/L (5-34); Albumin 3.9 g/dL (3.4-4.8); Alkaline Phosphatase 70 U/L (40-150); Anion Gap 18 mmol/L (10-20); BUN (Urea Nitrogen) 16 mg/dL (8.4-25.7); Bilirubin, Total 1.6 mg/dL (0.2-1.2); Calc. Creatinine Clearance 0 mL/min (70-130); Calcium 9.3 mg/dL (7.8-10.44); Carbon Dioxide 22 mmol/L (23-31); Chloride 104 mmol/L (98-107); Estimated GFR-MDRD 52; Globulin 3.7 g/dL (2.4-3.5); Glucose 107 mg/dL (83-110); Protein, Total 7.6 g/dL (5.8-8.1); Sodium 139 mmol/L (136-145)
== END 2018-04-30 22:35 | disposition home or self-care (01) ==
LOC: ERS 16:58
DX: I48.91 Unspecified atrial fibrillation (principal); I10 Essential (primary) hypertension; I25.10 Atherosclerotic heart disease of native coronary artery without angina pectoris; M10.9 Gout, unspecified; E11.9 Type 2 diabetes mellitus without complications; E78.5 Hyperlipidemia, unspecified; Z87.891 Personal history of nicotine dependence; Z79.899 Other long term (current) drug therapy; Z79.82 Long term (current) use of aspirin; Z79.01 Long term (current) use of anticoagulants
CPT/HCPCS: 71046; 80053; 85025; 93005; 96374; 96376

== ENCOUNTER 2018-08-06 10:08 | Observation (INO) | payer MEDICARE ==
[2018-08-06 12:05] LABS: #Eosinphils 0.1 thou/uL (0.0-0.7); #Lymphocytes 1.3 thou/uL (1.20-3.40); #Neutrophils 7.5 thou/uL (1.40-6.50); %Eosinophils 1.3 % (0.0-10.0); %Monocytes 9.9 % (0.0-10.0); %Neutrophils 75.8 % (42.0-75.0); Hemoglobin 14.7 g/dL (14.0-18.0); Mean Corpuscular HGB CONC 31.6 g/dL (32.0-36.0); Mean Corpuscular Hemoglobin 29.1 pg (27.0-31.0); Platelet Count 144 thou/uL (130-400); RBC Distribution Width 13.4 % (11.5-14.5); Red Blood Cell (RBC) Count 5.05 mill/uL (4.70-6.10); White Blood Cell (WBC) Count 9.9 thou/uL (4.8-10.8)
[2018-08-06 12:13] LABS: INR-International Normal Ratio 1.3; PTT 34.7 SEC (22.9-36.1); Prothrombin Time 16.2 SEC (12.0-14.7)
[2018-08-06 12:25] LABS: Anion Gap 12 mmol/L (10-20); BUN (Urea Nitrogen) 17 mg/dL (8.4-25.7); Calc. Creatinine Clearance 69 mL/min (70-130); Carbon Dioxide 25 mmol/L (23-31); Chloride 107 mmol/L (98-107); Estimated GFR-MDRD 60; Glucose 116 mg/dL (83-110); Potassium 3.9 mmol/L (3.5-5.1); Sodium 140 mmol/L (136-145)
[2018-08-06] MEDS ORDERED: Heparin 0 ML ONE (12:47)
[2018-08-06] MEDS ORDERED: Lidocaine Viscous Sol 2% 15 ml UD Cup ONE (13:35)
[2018-08-06] MEDS ORDERED: Fentanyl 100 MCG/2 ML VIAL ONE (14:16)
[2018-08-06] MEDS ORDERED: PROPOFOL 40 ML ONE (14:40)
[2018-08-06] MEDS ORDERED: PROPOFOL 200 MG/20 ML VIAL ONE (17:01)
[2018-08-06] MEDS ORDERED: PHENYLEPHRINE-NS 100 MCG/ML 10 ML SYRINGE ONE (17:01)
--- NOTE | 2018-08-06 18:19 | RAD ---
ABDOMEN ONE VIEW: History: Post ICD placement. FINDINGS: Left ICD is in place without pneumothorax. Post underlying sternotomy. Stable appearing left pleural effusion. New alveolar parenchymal process in the right perihilar region and medial right upper lobe since 04-30-18 concerning for the possibility of right upper lobe pneumonia. IMPRESSION: Left ICD placement. Stable appearing left pleural effusion. New alveolar parenchymal process in the r ight perihilar and suprahilar region concerning for the possibility of pneumonia and/or partial atele ctasis. Correlation clinically. Short term follow up for clearing. POS: [facility]
[2018-08-06] MEDS ORDERED: Furosemide 40 MG/4 ML VIAL ONE (18:43)
[2018-08-06] MEDS ORDERED: Furosemide 40 MG/4 ML VIAL SLOW IVP SCH (19:15)
[2018-08-06 19:51] VITALS: BMI 27.4
[2018-08-06] MEDS ORDERED: Acetaminophen 500 MG TAB PO PRN (20:59)
[2018-08-06] MEDS ORDERED: ALPRAZolam 1 MG TAB PO SCH (21:00)
[2018-08-06] MEDS ORDERED: Carvedilol 25 MG TAB PO SCH (21:00)
[2018-08-06] MEDS ORDERED: Atorvastatin Calcium 40 MG TAB PO SCH (21:00)
[2018-08-06] MEDS ORDERED: Potassium Chloride 20 MEQ TAB PO SCH (21:00)
[2018-08-06] MEDS ORDERED: traZODone HCl 50 MG TAB PO SCH (21:00)
[2018-08-06] MEDS: Carvedilol 25 MG TAB PO SCH (21:38)
[2018-08-06] MEDS: Cephalexin 250 MG CAP PO SCH (21:39)
[2018-08-06] MEDS: Amlodipine 5 MG TAB PO SCH (21:39)
[2018-08-07 07:24] LABS: Anion Gap 12 mmol/L (10-20); BUN (Urea Nitrogen) 20 mg/dL (8.4-25.7); Calc. Creatinine Clearance 55 mL/min (70-130); Calcium 8.6 mg/dL (7.8-10.44); Carbon Dioxide 28 mmol/L (23-31); Chloride 105 mmol/L (98-107); Estimated GFR-MDRD 46; Glucose 107 mg/dL (83-110); Potassium 4.1 mmol/L (3.5-5.1); Sodium 141 mmol/L (136-145)
[2018-08-07] MEDS ORDERED: Lisinopril 5 MG TAB PO SCH (09:00)
[2018-08-07] MEDS: Carvedilol 25 MG TAB PO SCH (09:16)
[2018-08-07] MEDS: Cephalexin 250 MG CAP PO SCH ×2 (09:16→15:48)
[2018-08-07] MEDS: Amlodipine 5 MG TAB PO SCH (09:17)
--- NOTE | 2018-08-07 11:29 | CT ---
Contrast-enhanced CTA chest. HISTORY: Left atrial appendage closure device evaluate left atrial appendage postclosure. Contrast-enhanced CTA chest performed. Sternotomy changes seen. Intracardiac defibrillator device is in place. The coronary sinus lead is al so present. Left atrial appendage clip is in place. No evidence of filling of the left atrial appendage and appen dages seen post clipping. A moderately enlarged left atrium is seen. Bilateral pleural effusions seen larger on the left than on the right. Bibasilar atelectasis and some left lower lobe consolidation seen. Coronary artery calcifications seen. IMPRESSION: Left atrial appendage clip in place. No evidence of residual flow seen in the left atrial appendage.
[2018-08-07] MEDS ORDERED: Iopamidol 370 76% 100 ML VIAL ONE (14:25)
[2018-08-07 16:20] VITALS: BP 122/60; TEMP 98.6
--- NOTE | 2018-08-07 16:36 | ECHO ---
REFERRING PHYSICIAN: Dr. Jackson Garay M.D. REASON FOR PROCEDURE: The patient is a 73-year-old male with history of single vessel bypass surgery, left atrial appendage closure on May 03, 2018. LVEF at 15-20% in December. Persistent atrial fibrillation. Sent here for TREY to evaluate adequacy of the left atrial appendage closing and evaluate for clots and for ----- function. PROCEDURE: The patient received Propofol by Anesthesia specialist. The standard transesophageal echocardiogram probe was passed into the esophagus without difficulty. Patient tolerated the procedure well. RESULTS: Left atrium is moderately enlarged about 5.4 cm in horizontal diameter. The left atrial appendage well visualized with mid-section closure of the left atrial appendage is noted. The residual stump measured to be 1.6 cm in depth and 1.4 cm in width is still present. Four out of four pulmonary veins were seen. The mitral valve has mild mitral regurgitation. Left ventricular systolic function is reduced with LVEF of about 25%. On four chamber study, evidence of dyssynchrony is noted with wall motion. Right sided chambers are mildly dilated. Intra-atrial and interventricular septum is free of defect. The aortic valve has three leaflets without regurgitation or stenosis. Mild tricuspid regurgitation only. No pericardial effusion noted. The visualized portion of ascending and descending aorta without aneurysm, dissection or significant atheroma. Mild adherent atheroma noted in the descending portion of the aorta. Pleural effusions are identified. CONCLUSION: 1. Prior surgical closure of left atrial appendage with residual 1.6 cm deep stump. 2. Spontaneous contrast throughout the left atrium. Possible early formation of clots cannot be completely ruled out. 3. Severely reduced left ventricular systolic function. Estimated about 25 % visually. 4. Mild mitral and tricuspid regurgitation. 5. No pericardial but pleural effusion was identified. PLAN: Proceed with Biv ICD implant and resume anticoagulation. Will discuss option for closure device placement and for now we will hold off from cardioversion after a month of anticoagulation therapy is in place. [facility]
--- NOTE | 2018-08-07 16:42 | DIS ---
DATE OF ADMISSION: 08/06/2018 DATE OF DISCHARGE: 08/07/2018 DIAGNOSES: Ischemic cardiomyopathy, left bundle-branch block, persistent atrial fibrillation, and left atrial appendage ligation. HISTORY OF PRESENT ILLNESS: Mr. Zamora is a pleasant 73-year-old gentleman with a history of myocardial infarction and subsequent single-vessel coronary artery bypass along with a left atrial appendage ligation in April of 2018. He has had persistent atrial fibrillation since then and was maintained on Eliquis for stroke prophylaxis. The recommendation being for continued OAC until his left atrial appendage could be further evaluated with imaging to determine appropriate closure before discontinuing anticoagulation. His left ventricular ejection fraction was severely reduced. He is wearing a LifeVest for 3 months with medical management, which continued to remain severely depressed. Thus, the recommendation for ICD implantation. With his left bundle-branch block and significant LV dyssynchrony, it was recommended to implant a biventricular system. On 08/06/2018, he was admitted for an elective outpatient TREY-guided cardioversion followed by biventricular ICD implant. TREY was performed that suggested residual left atrial appendage stump and further imaging was needed. There had been an interruption in his anticoagulation and thus cardioversion was not performed. He did undergo a biventricular ICD implant without complication following the TREY. He was found to have some accelerated heart rates, and he was started on diltiazem and kept overnight for additional monitoring postprocedurally. SUBJECTIVE: Mr. Zamora is feeling well this morning. He does not have any cardiac concerns or complaints. He denies any heart racing, palpitations, chest pain, pressure, syncope, near syncope, stroke, stroke-like symptoms, or bleeding at his implant site and denies any fevers or chills. He denies any nausea, vomiting, or diarrhea, and is ambulating about the sal[place]on normally. REVIEW OF SYSTEMS: An 8-point review of systems was conducted and is negative except that listed above in the HPI. OBJECTIVE: VITAL SIGNS: Temperature 97.9, pulse 61, blood pressure 121/65, respirations 18, and oxygen is 96% on room air. GENERAL: The patient is alert and oriented. Speech is clear. Affect is appropriate. NEUROLOGIC: Grossly intact and nonfocal. NECK: Supple without jugular venous distention. LUNGS: Clear to auscultation bilaterally with respirations even and unlabored. HEART: His heart rate is irregularly irregular. PMI is nondisplaced. Freshly implanted device is seated at the left infraclavicular fossa with minimal swelling and bruising. There is no drainage and no hematoma present. Incision line is clean and well approximated. ABDOMEN: Soft and nontender. Hepatojugular reflux is negative. EXTREMITIES: Warm and dry to touch. Well perfused without clubbing, cyanosis, or edema. Gait is stable. DATABASE: EKG and telemetry reveal ongoing atrial fibrillation that is rate controlled with biventricular pacing. Initially tachycardic, though after the first dose of p.o. diltiazem, heart rate gradually reduced to well controlled rates in the 60s and 70s. DEVICE CHECK: Viva Quad XT LUBRICATION TECHNICIAN-D, date of implant 08/06/2018. Lead parameters are stable. Thresholds are stable. Impedance levels are stable. There is good capture. Mode is DDDR. Lower rate limit of 60. Normal functioning device. Nothing to suggest lead dislodgement. DISCHARGE INSTRUCTIONS: 1. Take post-implant antibiotics x7 days as prescribed. 2. Keep incision clean and dry until well healed for approximately 1 to 2 months. Okay to shower. No driving for 3 days. No lifting in left arm above the level of the shoulder for 3 weeks. Follow up for outpatient laboratory testing to evaluate kidney function. RECOMMENDATIONS: Mr. Zamora is doing well, although the TREY did show some residual left atrial appendage stump. A cardiac CTA was performed to further visualize his appendage, which will be reviewed by Dr. Stratton in [place]. In the meantime, we will have him continue Eliquis at a reduced dose of 2.5 mg b.i.d. until his kidney function normalizes, at which point we will resume 5 mg b.i.d. dosing. He will follow up in 2 weeks for wound check in our clinic and in 3 months for general routine followup. DISCHARGE MEDICATIONS: 1. Tylenol 500 mg p.o. p.r.n. 2. Trazodone 100 mg p.o. at bedtime. 3. Zestril 5 mg daily. 4. Carvedilol 25 mg p.o. b.i.d. 5. Atorvastatin 40 mg at bedtime. 6. Eliquis 2.5 mg p.o. b.i.d. 7. Xanax p.o. at bedtime p.r.n. 8. Diltiazem 240 mg p.o. q.a.m. extended release. 9. Keflex 250 mg p.o. t.i.d. x7 days. Discontinued medications: 1. Amlodipine 5 mg p.o. b.i.d. 2. Eliquis 5 mg p.o. b.i.d. CONDITION AT DISCHARGE: Stable. Job ID: [id number]
[2018-08-07] MEDS ORDERED: Apixaban 5 MG TAB PO SCH (18:00)
[2018-08-08] MEDS ORDERED: Apixaban 5 MG TAB PO SCH ×2 (09:00)
== END 2018-08-07 17:54 | disposition home or self-care (01) ==
LOC: CCL 10:08 → 2SW 18:30
PROVIDERS: ADMIT Internal Medicine Cardiovascular Disease; ATTEND Internal Medicine Cardiovascular Disease
PROC: B24BZZ4 Ultrasonography of Heart with Aorta, Transesophageal (ICD-10-PCS; principal; 2018-08-06)
PROC: 0JH609Z Insertion of Cardiac Resynchronization Defibrillator Pulse Generator into Chest Subcutaneous Tissue and Fascia, Open Approach (ICD-10-PCS; 2018-08-06)
PROC: 02HL3KZ Insertion of Defibrillator Lead into Left Ventricle, Percutaneous Approach (ICD-10-PCS; 2018-08-06)
PROC: 02H63KZ Insertion of Defibrillator Lead into Right Atrium, Percutaneous Approach (ICD-10-PCS; 2018-08-06)
PROC: 02HK3KZ Insertion of Defibrillator Lead into Right Ventricle, Percutaneous Approach (ICD-10-PCS; 2018-08-06)
DX: I25.5 Ischemic cardiomyopathy (principal); I50.22 Chronic systolic (congestive) heart failure; I48.1 Persistent atrial fibrillation; I25.2 Old myocardial infarction; I08.1 Rheumatic disorders of both mitral and tricuspid valves; I44.7 Left bundle-branch block, unspecified; Z79.01 Long term (current) use of anticoagulants; Z79.899 Other long term (current) drug therapy; Z95.1 Presence of aortocoronary bypass graft
CPT/HCPCS: 33224; 33249; 71045; 71275; 76942; 80048 ×2; 85025; 85610; 85730; 92960; 93005; 93312; 93798; C1777; C1882; C1898; C1900; G0378; 36415; 93010; J0690; J1644; J1940; J2704; J3010; J3490; Q9967

== ENCOUNTER 2018-10-12 12:07 | Outpatient (CLI) | payer MEDICARE ==
[2018-10-12] MEDS ORDERED: Iopamidol 370 76% 100 ML VIAL ONE (12:22)
--- NOTE | 2018-10-12 16:38 | CT ---
CT neck with and without contrast: (Parathyroid protocol) DATE: 10/12/2018 HISTORY: The order is for ICD-10: "E04.1, thyroid nodule." No additional clinical information available. Ordering doctor's office closed when patient presented for today's CT. systems technologist asked radiologist Dr. Chappell, who instructed her to perform a parathyroid protocol. COMPARISON: CT angiogram of neck of 10/11/2017. TECHNIQUE: IV contrast: 85 mL [id number]. Precontrast scan, 25 seconds postcontrast scan, and 65 second postcontrast scan, from pattie to mid m axillary sinus level. Coronal and sagittal reconstructions. FINDINGS: There is a small left pleural effusion on the current study that was not present previously. There ar e also sternotomy wires on the current CT that were not present previously. There is a 0.8 x 1.3 x 1.8 cm enhancing solid nodule abutting the left side of the upper esophagus and the left tracheoesoph ageal groove, and abutting the posterior edge of the upper midpole of the left lobe of the thyroid gland (axial images 50 of 123, series 2; 50 05/11/2022, series 3; sagittal image 30 of 73, series 6; coronal image 57 of 97, series 5). C7-T1 level. It appears to have slightly higher attenuation relative to muscle and similar to thyroid parenchyma on the noncontrast scan suggesting intrinsic iod ine content, although that is not absolutely certain. It has not changed in size. At the anterolateral aspect of the lower pole of the left lobe of the thyroid gland, there is a 1.3 x 0.9 x 1.8 cm solid nodule with slightly heterogeneous enhancement, slightly lower than that of surrounding thyroid parenchyma. It is uncertain whether or not it was present on the previous CTA. IMPRESSION: 1. No interval change in the 1.8 x 1.3 x 0.8 cm solid enhancing nodule abutting the posterior surface of the left lobe of the thyroid gland since 10/11/2017. This could either be an extrathyroidal thyroid nodule or a parathyroid adenoma. Recommend correlation with serum PTH and serum calcium level s. 2. Left pleural effusion.
== END 2018-10-12 12:08 | disposition home or self-care (01) ==
LOC: BICCT 12:07
PROVIDERS: ATTEND Specialist
DX: E04.1 Nontoxic single thyroid nodule (principal); J90 Pleural effusion, not elsewhere classified
CPT/HCPCS: 70492; 82565

== ENCOUNTER 2018-12-11 09:10 | Outpatient (CLI) | payer MEDICARE ==
--- NOTE | 2018-12-13 08:04 | NM ---
HISTORY: Hyperparathyroidism, unspecified; PTH level on 11/14/2018 measured 130.5. RADIOPHARMACEUTICAL:24.5mCi technetium 99m-sestamibi injected intravenously FINDINGS: There is physiologic uptake in the salivary glands and thyroid gland. There is faint uptake in the no dule posterior to the superior pole of the left lobe of the thyroid gland. No abnormal areas of tracer localization are seen in the chest. IMPRESSION: Findings are suggestive of a left superior parathyroid adenoma Transcribed Date/Time: 12/13/2018 8:04 AM
== END 2018-12-11 09:11 | disposition home or self-care (01) ==
LOC: NM 09:10
PROVIDERS: ATTEND Specialist
DX: E21.3 Hyperparathyroidism, unspecified (principal); D35.1 Benign neoplasm of parathyroid gland
CPT/HCPCS: 78072; A9500

== ENCOUNTER 2019-05-14 11:32 | Outpatient (CLI) | payer MEDICARE ==
[2019-05-14 13:45] LABS: Hemoglobin 16.3 g/dL (14.0-18.0); Mean Corpuscular HGB CONC 32.9 g/dL (32.0-36.0); Mean Corpuscular Hemoglobin 31.9 pg (27.0-31.0); Mean Platelet Volume 9.6 fL (7.4-10.4); Platelet Count 119 thou/uL (130-400); RBC Distribution Width 12.8 % (11.5-14.5); White Blood Cell (WBC) Count 7.8 thou/uL (4.8-10.8)
[2019-05-14 13:49] LABS: INR-International Normal Ratio 1.1; Prothrombin Time 14.6 SEC (12.0-14.7)
[2019-05-14 13:50] LABS: PTT 29.7 SEC (22.9-36.1)
[2019-05-14 14:02] LABS: Anion Gap 11 mmol/L (10-20); BUN (Urea Nitrogen) 26 mg/dL (8.4-25.7); Calc. Creatinine Clearance 0 mL/min (70-130); Carbon Dioxide 24 mmol/L (23-31); Chloride 110 mmol/L (98-107); Estimated GFR-MDRD 44; Glucose 90 mg/dL (83-110); Potassium 4.3 mmol/L (3.5-5.1); Sodium 141 mmol/L (136-145)
== END 2019-05-14 11:33 | disposition home or self-care (01) ==
LOC: LABBT 11:32
PROVIDERS: ATTEND Internal Medicine Cardiovascular Disease
DX: Z01.812 Encounter for preprocedural laboratory examination (principal); I48.91 Unspecified atrial fibrillation
CPT/HCPCS: 80048; 85027; 85610; 85730

== ENCOUNTER → 2019-05-20 | Day surgery (SDC) | payer MEDICARE ==
[2019-05-14 11:08] VITALS: BMI 26.7
[~2019-05-20] MED LIST changes: +Amlodipine 5 MG TAB ONE; +DOPamine 400 MG/D5W 250 ML 250 ML ONE; -Diazepam 5 MG TAB ONE; -Fentanyl 100 MCG/2 ML VIAL ONE; +Heparin (Artline) 500 ML ONE; -Heparin 0 ML ONE; +Heparin 10,000 UNITS/1 ML VIAL ONE; +Lidocaine 2% Jelly 5 ML TUBE ONE; -Midazolam HCl 2 mg/2 ml Vial ONE; +PHENYLEPHRINE-NS 100 MCG/ML 10 ML SYRINGE ONE; +PROPOFOL 200 MG/20 ML VIAL ONE
--- NOTE | 2019-05-20 15:20 | OP ---
DATE OF PROCEDURE: 05/20/2019 PROCEDURE PERFORMED: Radiofrequency ablation. REASON FOR PROCEDURE: Mr. Zamora is a 74-year-old man with history of CHF, ischemic cardiomyopathy, chronic atrial fibrillation, status post left atrial appendage closure during his surgery, currently off anticoagulants. He had a Bi-V ICD implanted, but could not maintain sinus rhythm. His ventricular pacing is suboptimal, hence rapidly conducted atrial fibrillation, here for an AV felix ablation. DESCRIPTION OF PROCEDURE: The patient received deep sedation by Anesthesia specialist. The right femoral venous area was prepped, draped, anesthetized using subcutaneous lidocaine. Under ultrasound guidance, the right femoral vein was cannulated x1. An 8-German short sheath was introduced, through which a ThermoCool catheter was advanced to the right atrium, 3D map of the right atrium, His bundle, CS positions were obtained. Radiofrequency was delivered at the fast pathway and the slow pathway of the AV node. We were able to achieve complete AV block with a junctional escape rhythm noted at 40 beats per minute. Dopamine was administered at this point and no conduction AV node resumed. A total of 5 lesions delivered at total duration of 2 minutes and 7 seconds at 40 morrissey. The ICD was checked pre and post procedure, found to be adequate in function. The programming changes made making the patient's base rate at 70 beats per minute. The catheter and sheaths were removed in the catheterization laboratory technician. Hemostasis was obtained with manual pressure. The patient tolerated the procedure well. No issues noted. CONCLUSION: Successful AV felix ablation. PLAN: Stop diltiazem continue carvedilol for heart failure therapy. Routine postablation and ICD monitoring in the future. Job ID: [id number] [facility]
== END ==
LOC: CCL 12:51
PROVIDERS: ATTEND Internal Medicine Cardiovascular Disease
PROC: 02583ZZ Destruction of Conduction Mechanism, Percutaneous Approach (ICD-10-PCS; principal; 2019-05-20)
DX: I13.0 Hypertensive heart and chronic kidney disease with heart failure and stage 1 through stage 4 chronic kidney disease, or unspecified chronic kidney disease (principal); E11.22 Type 2 diabetes mellitus with diabetic chronic kidney disease; N18.3 Chronic kidney disease, stage 3 (moderate); I50.22 Chronic systolic (congestive) heart failure; I48.19 Other persistent atrial fibrillation; Z79.899 Other long term (current) drug therapy; Z95.1 Presence of aortocoronary bypass graft
CPT/HCPCS: 93005; 93010; 93623; 93650; C1732; C1769; J1265; J1644; J2001; J2704

== ENCOUNTER 2020-05-11 12:53 | Outpatient (CLI) | payer MEDICARE ==
--- NOTE | 2020-05-11 13:36 | CT ---
Cervical spine CT: 05/11/2020 HISTORY: Neck pain, limited range of motion TECHNIQUE: Axial CT imaging at 2 mm intervals through the cervical spine with coronal and sagittal re formatted imaging FINDINGS: Evaluation for central canal and/or neural foraminal stenosis is limited on routine CT exam ination. Moderate degenerative changes noted at the atlantoaxial interspace. The craniocervical junction, dens , occipital condyles, and C1-2 articulation demonstrate no acute findings. The imaged lung apices appear unremarkable. There is an incompletely imaged transvenous pacing device and there are incompletely imaged midline s ternotomy wires. C2-C3: There is no osseous cause of significant central canal or neural foraminal stenosis. C3-4: Mild facet and uncovertebral osteophyte formation on the right. Probable mild right neural fora donaldo stenosis. No osseous cause of significant central canal or left neural foraminal stenosis. C4-5: Significant right-sided facet and uncovertebral osteophyte formation with probable moderate rig ht neural foraminal stenosis. No osseous cause of significant central canal or left neural foraminal stenosis. C5-6: There is disc space narrowing and degenerative endplate change with anterior osteophyte formati on. There is prominent posterior osteophyte. Anterior osteophyte formation and bilateral uncovertebral osteophyte formation. There is bilateral neural foraminal stenosis, mild/moderate in se verity, as well as a moderate degree of central canal stenosis. C6-7: Uncovertebral osteophyte extension into the neural foramina leads to moderate/severe bilateral neural foraminal stenosis, right greater than left. There is posterior osteophyte formation with mild/moderate central canal stenosis. C7-T1: Mild bilateral facet hypertrophy. No osseous cause of significant central canal or neural fora donaldo stenosis. No acute fracture or evidence of dislocation. No suspicious lytic or blastic bone lesion. IMPRESSION: Multilevel cervical spine degenerative change as detailed above.
== END 2020-05-11 12:54 | disposition home or self-care (01) ==
LOC: BICCT 12:53
PROVIDERS: ATTEND Family Medicine
DX: M54.2 Cervicalgia (principal); M47.812 Spondylosis without myelopathy or radiculopathy, cervical region; M47.813 Spondylosis without myelopathy or radiculopathy, cervicothoracic region
CPT/HCPCS: 72125

== ENCOUNTER 2021-04-01 12:34 | Outpatient (CLI) | payer MEDICARE ==
[2021-04-01 22:45] LABS: SARS-CoV-2 PCR by NAA Not Detected (NotDetected)
== END 2021-04-01 12:35 | disposition home or self-care (01) ==
LOC: LABBT 12:34
PROVIDERS: ATTEND Internal Medicine
DX: Z01.812 Encounter for preprocedural laboratory examination (principal); Z20.822 Contact with and (suspected) exposure to COVID-19
CPT/HCPCS: U0003; U0005

== ENCOUNTER 2021-04-06 05:44 | Day surgery (SDC) | payer MEDICARE ==
[2021-03-31 10:44] VITALS: BMI 24.7
[2021-04-06] MEDS ORDERED: PROPOFOL 200 MG/20 ML VIAL ONE (08:26)
[2021-04-06] MEDS ORDERED: Lidocaine 1% PF 5 ML VIAL ONE (08:26)
== END 2021-04-06 09:30 | disposition home or self-care (01) ==
LOC: SDC 05:44
PROVIDERS: ATTEND Internal Medicine
PROC: 0DBL8ZX Excision of Transverse Colon, Via Natural or Artificial Opening Endoscopic, Diagnostic (ICD-10-PCS; principal; 2021-04-06)
DX: Z12.11 Encounter for screening for malignant neoplasm of colon (principal); D12.3 Benign neoplasm of transverse colon; K64.8 Other hemorrhoids; K64.4 Residual hemorrhoidal skin tags; Z86.010 Personal history of colon polyps; Z79.899 Other long term (current) drug therapy; Z95.1 Presence of aortocoronary bypass graft
CPT/HCPCS: 88305; J2704

== ENCOUNTER 2021-08-06 11:36 | Outpatient (CLI) | payer MEDICARE ==
[2021-08-06 12:32] LABS: Bilirubin Neg (Negative); Blood, Urine Negative (Negative); Clarity Clear (Clear); Glucose, Urine (Dipstick) Normal (Negative); Ketone, Urine Negative (Negative); Leukocyte Negative (Negative); Nitrite Negative (Negative); Protein, Urine (Dipstick) 30 mg/dl (Neg-Trace)
[2021-08-06 12:38] LABS: INR-International Normal Ratio 1.1; PTT 24.9 sec (22.0-33.0); Prothrombin Time 11.6 sec (9.5-12.1)
[2021-08-06 12:39] LABS: Anion Gap 13 mmol/L (10-20); BUN (Urea Nitrogen) 35 mg/dL (8.4-25.7); Calc. Creatinine Clearance 0 mL/min (70-130); Carbon Dioxide 26 mmol/L (23-31); Chloride 109 mmol/L (98-107); Glucose 83 mg/dL (83-110); Potassium 4.8 mmol/L (3.5-5.1); Sodium 143 mmol/L (136-145)
[2021-08-06 12:40] LABS: Hemoglobin 15.5 g/dL (13.5-17.5); Mean Corpuscular HGB CONC 32.8 g/dL (32.0-36.0); Mean Corpuscular Hemoglobin 32.1 pg (27.0-33.0); Mean Corpuscular Volume 97.7 fl (81.2-95.1); Mean Platelet Volume 11.1 fl (7.4-10.4); Platelet Count 114 10x3/uL (150-450); RBC Distribution Width 13.2 % (11.5-14.5); Red Blood Cell (RBC) Count 4.83 10x6/uL (4.32-5.72); White Blood Cell (WBC) Count 5.9 10x3/uL (3.5-10.5)
[2021-08-06 12:47] LABS: Bacteria/HPF None Seen HPF (None Seen); RBC/HPF 0-3 HPF (0-3); Squamous Epithelial 0-3 HPF (0-3); WBC/HPF 0-3 HPF (0-3)
[2021-08-06 22:55] LABS: SARS-CoV-2 PCR by NAA Not Detected (NotDetected)
== END 2021-08-06 11:37 | disposition home or self-care (01) ==
LOC: LABBT 11:36
PROVIDERS: ATTEND Urology
DX: Z01.818 Encounter for other preprocedural examination (principal); Z12.5 Encounter for screening for malignant neoplasm of prostate; N40.1 Benign prostatic hyperplasia with lower urinary tract symptoms; D35.1 Benign neoplasm of parathyroid gland; I25.10 Atherosclerotic heart disease of native coronary artery without angina pectoris; N28.9 Disorder of kidney and ureter, unspecified; M10.9 Gout, unspecified; R35.0 Frequency of micturition; E11.9 Type 2 diabetes mellitus without complications; Z20.822 Contact with and (suspected) exposure to COVID-19
CPT/HCPCS: 80048; 81001; 85027; 85610; 85730; 87086; 93005; U0003; U0005; 93010

== ENCOUNTER 2021-08-11 05:58 | Day surgery (SDC) | payer MEDICARE ==
[2021-08-11] MEDS ORDERED: B & O ONE (07:52)
[2021-08-11] MEDS ORDERED: Levofloxacin 500 mg/D5W 100 ml Premix Bag ONE (08:18)
[2021-08-11] MEDS ORDERED: PROPOFOL 200 MG/20 ML VIAL ONE (08:32)
[2021-08-11] MEDS ORDERED: Lidocaine 1% PF 5 ML VIAL ONE (08:32)
[2021-08-11] MEDS ORDERED: Oxybutynin 5 MG TAB ONE (09:35)
[2021-08-11] MEDS ORDERED: Phenazopyridine HCl 100 MG TAB ONE (09:36)
[2021-08-11] MEDS ORDERED: HYDROcodone/Acetaminophen 5/325 mg Tablet ONE (10:09)
== END 2021-08-11 13:23 | disposition home or self-care (01) ==
LOC: SDC 05:58
PROVIDERS: ATTEND Urology
PROC: 0T7D8DZ Dilation of Urethra with Intraluminal Device, Via Natural or Artificial Opening Endoscopic (ICD-10-PCS; principal; 2021-08-11)
DX: N40.1 Benign prostatic hyperplasia with lower urinary tract symptoms (principal); N13.8 Other obstructive and reflux uropathy; N36.2 Urethral caruncle; N32.89 Other specified disorders of bladder; Z95.1 Presence of aortocoronary bypass graft; Z95.810 Presence of automatic (implantable) cardiac defibrillator
CPT/HCPCS: J1956; J2704